=== PATIENT | female | born 1955 | race African-American/Black ===

== ENCOUNTER 2017-01-25 09:17 | Emergency (ER) | payer BC, OTHER ==
[~2017-01-25] VITALS: Ht 157.5 cm; Wt 68.0 kg
[~2017-01-25 09:17] MED LIST: MONISTAT VG
== END 2017-01-25 10:10 | disposition home or self-care (01) ==
LOC: CFTX 09:17 → CED 09:17 → CFTX 09:46
DX: R21 Rash and other nonspecific skin eruption (principal); Z88.2 Allergy status to sulfonamides
CPT/HCPCS: 96372; 99283; J1100